=== PATIENT | female | born 1945 ===

== ENCOUNTER 2017-03-10 09:43 | Day surgery (SDC) | payer MEDICARE ==
[2017-03-09 08:58] VITALS: BMI 16.5
[2017-03-10] MEDS ORDERED: Ciprofloxacin 400mg/200ml D5W 400 MG/200 ML BAG IVPB ONE (10:33)
[2017-03-10] MEDS ORDERED: Iohexol 240 (50 ml) ONE (10:33)
[2017-03-10] MEDS ORDERED: Lidocaine 2% Jelly (Uro-Jet) ONE (10:34)
[2017-03-10] MEDS ORDERED: Lactated Ringer's 1,000 ML IV ONE (11:35)
[2017-03-10] MEDS ORDERED: Propofol 10 mg/ml Inj (20 ML) ONE (11:37)
[2017-03-10] MEDS ORDERED: Lactated Ringer's 1,000 ML IV SCH (12:15)
[2017-03-10 12:35] VITALS: O2SAT 100
--- NOTE | 2017-03-10 12:37 | PCM.SURG1 ---
Surgeon's Initial Post Op Note - Surgeon's Notes Surgeon: [email or web address] [employer] Manager: none Type of Anesthesia: General IV Anesthesia Administered By: Pre-Operative Diagnosis: microscopy hematuria. Operative Findings: urethritis.meatal stenosis.bladder neck edema. Post-Operative Diagnosis: meatal stenosis.urethritis.bladder neck edema. Operation Performed: cystoscopy bilateral retrograde.urethral dilatation. Specimen/Specimens Removed: none Estimated Blood Loss: EBL {In ML}: 0 Drains Used: No Drains Post-Op Condition: Good Date of Surgery/Procedure: 03/10/17 Time of Surgery/Procedure: 12:38
[2017-03-10 14:17] VITALS: BP 112/70; PULSE 63; RESP 18; TEMP 97
--- NOTE | 2017-03-10 14:37 | RAD ---
PROCEDURE: HISTORY: GROSS HEMATURIA COMPARISON: None TECHNIQUE: Three images FINDINGS: Char Conveyor Tender Cellar image: Left and right stool retention. No urolithiasis appreciated. Lumbar intervertebral disc space narrowing Series 1 image 2: Left ureter opacified -normal smooth caliber without filling defect. Left pelvocaliceal system opacification without gross filling defects Series 1, image 3 cul right pelvocaliceal system opacified undistended less than that on the left. Right ureter segmentally visualized no filling defects -portions visualized or caliber appreciated. IMPRESSION: No worrisome filling defects or caliber abnormalities or contour irregularities appreciated Pelvocaliceal systems - within normal variation
--- NOTE | 2017-03-11 17:01 | OP ---
PROCEDURE DATE: 03/10/2017 PREOPERATIVE DIAGNOSIS: Microscopic hematuria. POSTOPERATIVE DIAGNOSES: Meatal stenosis, urethritis and bladder neck edema. PROCEDURE: Cystoscopy, bilateral retrograde pyelogram and urethral dilatation, #28. SURGEON: Chidi Helton MD. GROSS FINDINGS: Good bladder capacity. No tumors or a stone were observed during emptying or filling of the bladder. Ureteral orifices as normally placed and in configuration. Mild trabeculated bladder noted. Inflammation of the urethra with bladder neck edema noted. Meatal stenosis. Calibrate #20. On the bilateral retrograde, no filling defect. No renal masses. No intraluminal defect. Mild left renal pelvic dilatation due to crossing vessel at the ureteropelvic junction. TECHNIQUE: This patient was placed in lithotomy position. The external genitalia were prepped and draped in the usual sterile fashion. A #17 panendoscope was introduced into the bladder. Findings as above. Using a #8 cone-tipped urethral catheter, which was placed in the intramural portion of both lower ureter. 8 mL of dye was injected into both renal unit. X-rays were taken, finding as above. The cysto was terminated. The urethra was dilated to in #28 [place] sounds. The patient withdrew the procedure well and returned to recovery room in satisfactory condition. Chidi Helton MD
== END 2017-03-10 14:19 | disposition home or self-care (01) ==
LOC: C.SDS 09:43
PROVIDERS: ATTEND Urology
DX: N35.9 Urethral stricture, unspecified (principal); N34.2 Other urethritis; R31.0 Gross hematuria; R31.29 Other microscopic hematuria
CPT/HCPCS: 36415; 52281; 74420; 85610; 85730; J0744; J7120; Q9966